=== PATIENT | female | born 1940 | race Caucasian/White ===

== ENCOUNTER 2022-02-18 08:07 | Outpatient (CLI) | payer MEDICARE, OTHER, SELFPAY ==
[2022-02-18 08:32] LABS: Absolute Basophil Count 0.02 10^3/uL (0.0-0.2); Absolute Eosinophil Count 0.08 10^3/uL (0.0-0.7); Absolute Lymphocyte Count 1.02 10^3/uL (1.2-3.4); Absolute Monocyte Count 0.35 10^3/uL (0.1-0.8); Absolute Neutrophil Count 2.09 10^3/uL (1.2-6.7); Basophils % 0.6; Eosinophils % 2.2; HCT 38.5 % (36.0-46.0); HGB 12.8 g/dL (11.2-15.7); Lymphocytes % 28.7; MCH 33.2 pg (27.0-33.0); MCHC 33.2 % (32.0-36.0); MPV 10.9 fL (8.0-11.0); Monocytes % 9.8; Neutrophils % 58.7; Nucleated RBC 0 %; Platelet Count 257 10^3/uL (130-400); RBC 3.85 10^6/uL (3.93-5.22); RDW 11.5 % (11.7-14.6); RDW-SD 41.8 fL; WBC 3.56 10^3/uL (4.4-10.8)
[2022-02-18 08:46] LABS: ALT 23 U/L (14-59); AST 15 U/L (15-37); Albumin 3.4 g/dL (3.4-5.0); Alkaline Phosphatase 64 U/L (46-116); Anion Gap 8.3 mmol/L (3-11); BUN 16 mg/dL (7-18); Bilirubin, Total 0.8 mg/dL (0.2-1.0); CO2 26.7 mmol/L (21.0-32.0); CREATININE 0.7 mg/dL (0.55-1.02); Calcium 8.4 mg/dL (8.5-10.1); Chloride 107 mmol/L (98-107); Glucose 77 mg/dL (74-106); Potassium 3.7 mmol/L (3.5-5.1); Sodium 142 mmol/L (136-145); Total Protein 6.8 g/dL (6.4-8.2)
== END 2022-02-18 08:08 | disposition home or self-care (01) ==
PROVIDERS: PCP Internal Medicine; Visit Provider Internal Medicine Hematology & Oncology
DX: C16.0 Malignant neoplasm of cardia (principal)
CPT/HCPCS: 36415; 80053; 85025

== ENCOUNTER 2022-02-25 14:34 | Outpatient (CLI) | payer MEDICARE, OTHER, SELFPAY ==
[2022-02-25 08:12] LABS: Abs Immature Grans 0.02 10^3/uL (0.0-0.06); Absolute Basophil Count 0.03 10^3/uL (0.0-0.2); Absolute Eosinophil Count 0.09 10^3/uL (0.0-0.7); Absolute Lymphocyte Count 0.42 10^3/uL (1.2-3.4); Absolute Monocyte Count 0.19 10^3/uL (0.1-0.8); Absolute Neutrophil Count 1.35 10^3/uL (1.2-6.7); Basophils % 1.4; Eosinophils % 4.3; HCT 36.4 % (36.0-46.0); HGB 12.1 g/dL (11.2-15.7); MCH 32.9 pg (27.0-33.0); MCHC 33.2 % (32.0-36.0); MCV 98.9 fL (80-95); Neutrophils % 64.3; Nucleated RBC 0 %; Platelet Count 227 10^3/uL (130-400); RBC 3.68 10^6/uL (3.93-5.22); RDW 11.1 % (11.7-14.6); RDW-SD 40.9 fL
[2022-02-25 08:27] LABS: ALT 18 U/L (14-59); AST 13 U/L (15-37); Albumin 3.3 g/dL (3.4-5.0); Alkaline Phosphatase 63 U/L (46-116); Anion Gap 8.5 mmol/L (3-11); BUN 15 mg/dL (7-18); Bilirubin, Total 0.8 mg/dL (0.2-1.0); CO2 27.5 mmol/L (21.0-32.0); CREATININE 0.6 mg/dL (0.55-1.02); Calcium 8.4 mg/dL (8.5-10.1); Chloride 105 mmol/L (98-107); Glucose 108 mg/dL (74-106); Sodium 141 mmol/L (136-145); Total Protein 6.7 g/dL (6.4-8.2)
== END 2022-02-25 14:35 | disposition home or self-care (01) ==
LOC: LBO 14:37
PROVIDERS: PCP Internal Medicine; Visit Provider Internal Medicine Hematology & Oncology
DX: C16.0 Malignant neoplasm of cardia (principal)
CPT/HCPCS: 36415; 80053; 85025

== ENCOUNTER 2022-03-04 02:42 | Outpatient (CLI) | payer MEDICARE, OTHER, SELFPAY ==
[2022-03-04 08:52] LABS: HCT 34.4 % (36.0-46.0); HGB 11.4 g/dL (11.2-15.7); MCHC 33.1 % (32.0-36.0); MCV 99.7 fL (80-95); MPV 10.4 fL (8.0-11.0); Nucleated RBC 0 %; Platelet Count 203 10^3/uL (130-400); RBC 3.45 10^6/uL (3.93-5.22); RDW 11.5 % (11.7-14.6); RDW-SD 41.2 fL
[2022-03-04 09:12] LABS: ALT 19 U/L (14-59); AST 14 U/L (15-37); Albumin 3.3 g/dL (3.4-5.0); Alkaline Phosphatase 56 U/L (46-116); Anion Gap 5.4 mmol/L (3-11); BUN 16 mg/dL (7-18); Bilirubin, Total 0.6 mg/dL (0.2-1.0); CO2 29.6 mmol/L (21.0-32.0); CREATININE 0.7 mg/dL (0.55-1.02); Calcium 8.5 mg/dL (8.5-10.1); Chloride 105 mmol/L (98-107); Glucose 110 mg/dL (74-106); Potassium 3.7 mmol/L (3.5-5.1); Sodium 140 mmol/L (136-145); Total Protein 6.6 g/dL (6.4-8.2)
[2022-03-04 09:36] LABS: WBC 1.22 10^3/uL (4.4-10.8)
[2022-03-04 09:55] LABS: Absolute Basophil Count 0.01 10^3/uL (0.0-0.2); Absolute Lymphocyte Count 0.26 10^3/uL (1.2-3.4); Absolute Neutrophil Count 0.81 10^3/uL (1.2-6.7); Atypical Lymphocytes % 3
[2022-03-04 09:56] LABS: Diff Comment Manual Differential; Other Cells % 4; RBC Morphology Normal
== END 2022-03-04 02:43 | disposition home or self-care (01) ==
LOC: LBO 02:42
PROVIDERS: PCP Internal Medicine; Visit Provider Internal Medicine Hematology & Oncology
DX: C16.0 Malignant neoplasm of cardia (principal)
CPT/HCPCS: 36415; 80053; 85025

== ENCOUNTER 2022-03-11 02:35 | Outpatient (CLI) | payer MEDICARE, OTHER, SELFPAY ==
[2022-03-11 08:22] LABS: HCT 37.2 % (36.0-46.0); HGB 12.5 g/dL (11.2-15.7); MCH 32.9 pg (27.0-33.0); MCHC 33.6 % (32.0-36.0); MCV 97.9 fL (80-95); MPV 9.7 fL (8.0-11.0); Platelet Count 252 10^3/uL (130-400); RDW 12.1 % (11.7-14.6)
[2022-03-11 08:34] LABS: ALT 21 U/L (14-59); AST 18 U/L (15-37); Albumin 3.4 g/dL (3.4-5.0); Alkaline Phosphatase 68 U/L (46-116); Anion Gap 5.3 mmol/L (3-11); BUN 14 mg/dL (7-18); Bilirubin, Total 0.6 mg/dL (0.2-1.0); CO2 29.7 mmol/L (21.0-32.0); CREATININE 0.7 mg/dL (0.55-1.02); Calcium 8.6 mg/dL (8.5-10.1); Chloride 105 mmol/L (98-107); Glucose 109 mg/dL (74-106); Potassium 3.9 mmol/L (3.5-5.1); Sodium 140 mmol/L (136-145); Total Protein 6.8 g/dL (6.4-8.2)
[2022-03-11 08:47] LABS: WBC 1.99 10^3/uL (4.4-10.8)
[2022-03-11 09:05] LABS: Absolute Eosinophil Count 0.06 10^3/uL (0.0-0.7); Absolute Lymphocyte Count 0.34 10^3/uL (1.2-3.4); Absolute Neutrophil Count 1.37 10^3/uL (1.2-6.7); Atypical Lymphocytes % 3; Bands % 1; Metamyelocytes % 1
[2022-03-11 09:06] LABS: Diff Comment Manual Differential; RBC Morphology Normal
== END 2022-03-11 02:36 | disposition home or self-care (01) ==
LOC: LBO 02:36
PROVIDERS: PCP Internal Medicine; Visit Provider Internal Medicine Hematology & Oncology
DX: C16.0 Malignant neoplasm of cardia (principal)
CPT/HCPCS: 36415; 80053; 85025

== ENCOUNTER 2022-03-18 18:55 | Outpatient (CLI) | payer MEDICARE, OTHER, SELFPAY ==
[2022-03-18 08:17] LABS: Abs Immature Grans 0.02 10^3/uL (0.0-0.06); Absolute Basophil Count 0.03 10^3/uL (0.0-0.2); Absolute Eosinophil Count 0.06 10^3/uL (0.0-0.7); Absolute Lymphocyte Count 0.25 10^3/uL (1.2-3.4); Absolute Neutrophil Count 1.42 10^3/uL (1.2-6.7); Basophils % 1.4; Eosinophils % 2.9; HCT 35.3 % (36.0-46.0); HGB 11.9 g/dL (11.2-15.7); MCH 33.3 pg (27.0-33.0); MCHC 33.7 % (32.0-36.0); MCV 98.9 fL (80-95); MPV 10.2 fL (8.0-11.0); Monocytes % 14.4; Neutrophils % 68.3; Platelet Count 193 10^3/uL (130-400); RBC 3.57 10^6/uL (3.93-5.22); RDW 12.1 % (11.7-14.6); RDW-SD 43.9 fL; WBC 2.08 10^3/uL (4.4-10.8)
[2022-03-18 08:31] LABS: ALT 26 U/L (14-59); AST 18 U/L (15-37); Albumin 3.4 g/dL (3.4-5.0); Alkaline Phosphatase 62 U/L (46-116); Anion Gap 4.4 mmol/L (3-11); BUN 17 mg/dL (7-18); Bilirubin, Total 0.9 mg/dL (0.2-1.0); CO2 29.6 mmol/L (21.0-32.0); CREATININE 0.6 mg/dL (0.55-1.02); Calcium 8.6 mg/dL (8.5-10.1); Chloride 104 mmol/L (98-107); Glucose 107 mg/dL (74-106); Potassium 3.5 mmol/L (3.5-5.1); Sodium 138 mmol/L (136-145); Total Protein 6.6 g/dL (6.4-8.2)
== END 2022-03-18 18:56 | disposition home or self-care (01) ==
LOC: LBO 18:56
PROVIDERS: PCP Internal Medicine; Visit Provider Internal Medicine Hematology & Oncology
DX: C16.0 Malignant neoplasm of cardia (principal)
CPT/HCPCS: 36415; 80053; 85025

== ENCOUNTER 2022-03-25 01:40 | Outpatient (CLI) | payer MEDICARE, OTHER, SELFPAY ==
[2022-03-25 10:38] LABS: Absolute Basophil Count 0.02 10^3/uL (0.0-0.2); Absolute Eosinophil Count 0.05 10^3/uL (0.0-0.7); Absolute Lymphocyte Count 0.16 10^3/uL (1.2-3.4); Absolute Monocyte Count 0.29 10^3/uL (0.1-0.8); Absolute Neutrophil Count 1.49 10^3/uL (1.2-6.7); Eosinophils % 2.5; HCT 33.9 % (36.0-46.0); HGB 11.3 g/dL (11.2-15.7); MCH 33.1 pg (27.0-33.0); MCHC 33.3 % (32.0-36.0); MCV 99 fL (80-95); MPV 10.4 fL (8.0-11.0); Monocytes % 14.4; Neutrophils % 74.1; Platelet Count 168 10^3/uL (130-400); RBC 3.41 10^6/uL (3.93-5.22); RDW 13.1 % (11.7-14.6); RDW-SD 45.9 fL; WBC 2.01 10^3/uL (4.4-10.8)
[2022-03-25 10:49] LABS: ALT 22 U/L (14-59); AST 17 U/L (15-37); Albumin 3.2 g/dL (3.4-5.0); Alkaline Phosphatase 74 U/L (46-116); BUN 16 mg/dL (7-18); Bilirubin, Total 0.8 mg/dL (0.2-1.0); CREATININE 0.7 mg/dL (0.55-1.02); Calcium 8.3 mg/dL (8.5-10.1); Chloride 105 mmol/L (98-107); Glucose 121 mg/dL (74-106); Potassium 3.5 mmol/L (3.5-5.1); Sodium 140 mmol/L (136-145); Total Protein 6.3 g/dL (6.4-8.2)
== END 2022-03-25 01:41 | disposition home or self-care (01) ==
LOC: LBO 01:40
PROVIDERS: PCP Internal Medicine; Visit Provider Internal Medicine Hematology & Oncology
DX: C16.0 Malignant neoplasm of cardia (principal)
CPT/HCPCS: 36415; 80053; 85025

== ENCOUNTER 2022-03-30 01:46 | Outpatient (CLI) | payer MEDICARE, OTHER, SELFPAY ==
[2022-03-30 12:21] LABS: Abs Immature Grans 0.01 10^3/uL (0.0-0.06); Absolute Basophil Count 0.01 10^3/uL (0.0-0.2); Absolute Eosinophil Count 0.05 10^3/uL (0.0-0.7); Absolute Lymphocyte Count 0.25 10^3/uL (1.2-3.4); Absolute Monocyte Count 0.59 10^3/uL (0.1-0.8); Absolute Neutrophil Count 1.66 10^3/uL (1.2-6.7); Basophils % 0.4; Eosinophils % 1.9; HCT 33.5 % (36.0-46.0); HGB 11.1 g/dL (11.2-15.7); Immature Grans % 0.4; Lymphocytes % 9.7; MCH 32.7 pg (27.0-33.0); MCHC 33.1 % (32.0-36.0); MCV 99 fL (80-95); MPV 10.6 fL (8.0-11.0); Neutrophils % 64.6; Platelet Count 238 10^3/uL (130-400); RBC 3.39 10^6/uL (3.93-5.22); RDW-SD 49.1 fL; WBC 2.57 10^3/uL (4.4-10.8)
[2022-03-30 13:20] LABS: ALT 17 U/L (14-59); AST 11 U/L (15-37); Albumin 3.3 g/dL (3.4-5.0); Alkaline Phosphatase 70 U/L (46-116); Anion Gap 8.9 mmol/L (3-11); BUN 12 mg/dL (7-18); Bilirubin, Total 0.7 mg/dL (0.2-1.0); CO2 29.1 mmol/L (21.0-32.0); CREATININE 0.7 mg/dL (0.55-1.02); Calcium 8.3 mg/dL (8.5-10.1); Chloride 104 mmol/L (98-107); Glucose 110 mg/dL (74-106); Potassium 3.6 mmol/L (3.5-5.1); Sodium 142 mmol/L (136-145); Total Protein 6.2 g/dL (6.4-8.2)
== END 2022-03-30 01:47 | disposition home or self-care (01) ==
LOC: LBO 01:47
PROVIDERS: PCP Internal Medicine; Visit Provider Internal Medicine Hematology & Oncology
DX: C16.0 Malignant neoplasm of cardia (principal); R11.2 Nausea with vomiting, unspecified
CPT/HCPCS: 36415; 80053; 85025

== ENCOUNTER → 2022-06-13 00:46 | Outpatient (CLI) | payer MEDICARE, OTHER, SELFPAY ==
--- NOTE | 2022-06-13 | DI.RAD_ITS ---
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 COMPARISON: CR XR CHEST ONE VIEW from 05/18/2022 DX XR CHEST PA AND LATERAL (GENERIC) from 05/23/2022 DX XR CHEST PA AND LATERAL (GENERIC) from 05/23/2022 FINDINGS: MEDIASTINUM: Drainage catheter is been removed . Suture material. HEART: Normal size. PULMONARY VASCULATURE: Normal. LUNGS: Hyperinflated but clear. PLEURAL SPACE: Minimal blunting bilateral costophrenic angles. No pneumothorax. BONE:Scoliosis thoraco lumbar junction. IMPRESSION: Minimal blunting both costophrenic angles could represent pleural scarring versus tiny effusions. No pneumothorax or infiltrate. Postsurgical changes. DATA REPOSITORY: RADIATION DOSE DELIVERED:
== END ==
PROVIDERS: PCP Internal Medicine; Visit Provider Physician Assistant
DX: C15.9 Malignant neoplasm of esophagus, unspecified (principal); Z90.49 Acquired absence of other specified parts of digestive tract
CPT/HCPCS: 71046

== ENCOUNTER 2022-06-17 02:14 | Outpatient (CLI) | payer MEDICARE, OTHER, SELFPAY ==
[2022-06-17 13:44] LABS: Abs Immature Grans 0.02 10^3/uL (0.0-0.06); Absolute Basophil Count 0.03 10^3/uL (0.0-0.2); Absolute Eosinophil Count 0.14 10^3/uL (0.0-0.7); Absolute Monocyte Count 0.68 10^3/uL (0.1-0.8); Absolute Neutrophil Count 3.05 10^3/uL (1.2-6.7); Basophils % 0.7; Eosinophils % 3.2; HCT 33.3 % (36.0-46.0); HGB 11.2 g/dL (11.2-15.7); Immature Grans % 0.5; Lymphocytes % 11.3; MCH 35.3 pg (27.0-33.0); MCHC 33.6 % (32.0-36.0); MCV 105 fL (80-95); MPV 9.4 fL (8.0-11.0); Monocytes % 15.4; Neutrophils % 68.9; Platelet Count 318 10^3/uL (130-400); RBC 3.17 10^6/uL (3.93-5.22); RDW 12.1 % (11.7-14.6); WBC 4.42 10^3/uL (4.4-10.8)
[2022-06-17 14:00] LABS: ALT 54 U/L (14-59); AST 34 U/L (15-37); Albumin 2.9 g/dL (3.4-5.0); Alkaline Phosphatase 118 U/L (46-116); Anion Gap 5.5 mmol/L (3-11); BUN 29 mg/dL (7-18); Bilirubin, Total 0.4 mg/dL (0.2-1.0); CO2 27.5 mmol/L (21.0-32.0); CREATININE 0.6 mg/dL (0.55-1.02); Calcium 8.3 mg/dL (8.5-10.1); Chloride 105 mmol/L (98-107); Glucose 85 mg/dL (74-106); Potassium 3.5 mmol/L (3.5-5.1); Sodium 138 mmol/L (136-145); Total Protein 6.4 g/dL (6.4-8.2)
== END 2022-06-17 02:15 | disposition home or self-care (01) ==
LOC: LBO 02:15
PROVIDERS: PCP Internal Medicine; Visit Provider Internal Medicine Hematology & Oncology
DX: C15.5 Malignant neoplasm of lower third of esophagus (principal)
CPT/HCPCS: 36415; 80053; 85025

== ENCOUNTER 2022-07-29 02:08 | Outpatient (CLI) | payer MEDICARE, OTHER, SELFPAY ==
[2022-07-29 12:08] LABS: Absolute Basophil Count 0.02 10^3/uL (0.0-0.2); Absolute Eosinophil Count 0.07 10^3/uL (0.0-0.7); Absolute Lymphocyte Count 0.73 10^3/uL (1.2-3.4); Absolute Monocyte Count 0.43 10^3/uL (0.1-0.8); Absolute Neutrophil Count 1.81 10^3/uL (1.2-6.7); Basophils % 0.7; Eosinophils % 2.3; HCT 36.5 % (36.0-46.0); HGB 12.4 g/dL (11.2-15.7); Lymphocytes % 23.9; MCH 33.5 pg (27.0-33.0); MCV 99 fL (80-95); MPV 10.5 fL (8.0-11.0); Monocytes % 14.1; Platelet Count 243 10^3/uL (130-400); WBC 3.06 10^3/uL (4.4-10.8)
[2022-07-29 12:23] LABS: ALT 28 U/L (14-59); AST 26 U/L (15-37); Alkaline Phosphatase 134 U/L (46-116); Anion Gap 7.4 mmol/L (3-11); BUN 14 mg/dL (7-18); Bilirubin, Total 0.9 mg/dL (0.2-1.0); CO2 28.6 mmol/L (21.0-32.0); CREATININE 0.6 mg/dL (0.55-1.02); Calcium 8.5 mg/dL (8.5-10.1); Chloride 108 mmol/L (98-107); Estimated GFR 90.68 (mL/min/1.73m2); Glucose 70 mg/dL (74-106); Sodium 144 mmol/L (136-145); Total Protein 6.8 g/dL (6.4-8.2)
[2022-07-29 13:59] LABS: Vitamin B12 413 pg/mL (193-986)
[2022-07-29 14:01] LABS: Folate > 20.0 ng/mL (8.6-20.0)
== END 2022-07-29 02:09 | disposition home or self-care (01) ==
LOC: LBO 02:09
PROVIDERS: PCP Internal Medicine; Visit Provider Internal Medicine Hematology & Oncology
DX: C16.0 Malignant neoplasm of cardia (principal); D72.819 Decreased white blood cell count, unspecified
CPT/HCPCS: 36415; 80053; 82607; 82746; 85025